=== PATIENT | female | born 1980 | race Caucasian/White ===

== ENCOUNTER → 2024-01-15 | Outpatient (CLI) | payer OTHER ==
[~2024-01-15] MED LIST: IBUP-1022 PO; METH0.2T53 PO; PRENTAB53 PO
[2024-01-15 18:34] LABS: BASO % 0.5 % (0.0-1.0); EOS # 0.1 10^3/uL (0.0-0.5); HEMATOCRIT 31.1 % (36.0-47.0); HEMOGLOBIN 9.5 g/dl (12.0-15.5); LYMPH # 1.4 10^3/uL (1.5-5.0); LYMPH % 22.3 % (24.0-44.0); MEAN CORPUSCULAR HEMOGLOBIN 26.5 pg (27.0-33.0); MEAN CORPUSCULAR HGB CONC 30.5 g/dl (32.0-36.5); MEAN CORPUSCULAR VOLUME 86.9 fl (80.0-96.0); MONO # 0.4 10^3/uL (0.0-0.8); MONO % 6.9 % (2.0-8.0); NEUTROPHILS # 4.3 10^3/uL (1.5-8.5); PLATELET COUNT, AUTOMATED 428 10^3/uL (150-450); RED BLOOD COUNT 3.58 10^6/uL (4.00-5.40); WHITE BLOOD COUNT 6.2 10^3/uL (4.0-10.0)
[2024-01-15 18:58] LABS: FREE T4 1.11 NG/DL (0.89-1.76)
[2024-01-15 18:59] LABS: THYROID STIMULATING HORMONE 2.376 uIU/ML (0.55-4.78)
== END ==
LOC: M PLALAB 14:39
PROVIDERS: ATTEND Nurse Practitioner Family
DX: N92.0 Excessive and frequent menstruation with regular cycle (principal)

== ENCOUNTER → 2024-01-27 | Outpatient (CLI) | payer OTHER | LOC: M WHC 06:45 | PROVIDERS: ATTEND Nurse Practitioner Family | DX: N92.0 Excessive and frequent menstruation with regular cycle (principal); D25.0 Submucous leiomyoma of uterus ==

== ENCOUNTER → 2024-01-27 | Outpatient (CLI) | payer OTHER ==
[2024-01-27 11:28] LABS: IRON (FE) 17 UG/DL (50-170); PERCENT SATURATION 4.3 % (13.2-45.0); TOTAL IRON BINDING CAPACITY 395 UG/DL (250-425)
[2024-01-27 11:32] LABS: FERRITIN < 0.9 NG/ML (7.3-270.7)
== END ==
LOC: M PLALAB 07:39
PROVIDERS: ATTEND Nurse Practitioner Family
DX: N92.0 Excessive and frequent menstruation with regular cycle (principal)

== ENCOUNTER → 2024-01-30 | Outpatient (CLI) | payer OTHER | LOC: MERGE 08:00 → M WHC 08:02 | PROVIDERS: ATTEND Nurse Practitioner Family | DX: N64.4 Mastodynia (principal); N63.20 Unspecified lump in the left breast, unspecified quadrant; R92.322 Mammographic fibroglandular density, left breast; N60.11 Diffuse cystic mastopathy of right breast; N60.12 Diffuse cystic mastopathy of left breast | CPT/HCPCS: 76641; 76642; 77066; G0279 ==

== ENCOUNTER 2024-02-17 14:03 | Outpatient (CLI) | payer OTHER ==
[~2024-02-17] VITALS: Ht 162.6 cm; Wt 71.0 kg
[~2024-02-17 14:03] MED LIST changes: +ALBUTEROL SULFATE 2.5MG/0.5ML INH NEB SOLN INH PRN; +EPINEPHrine INJ 1 MG/ML 1ML AMP IM PRN; +NS 1,000 ML IV SCH; +diphenhydrAMINE 50MG/ML VIAL IV PRN; +methylPREDNISolone 125MG 2ML VIAL IV PRN
[2024-02-17 14:45] VITALS: BP 158/88; O2SAT 100
[2024-02-17] MEDS: FERRIC CARBOXYMALTOSE INJ 750 MG in NS 250 ML (>50kg) IV ONE (14:48)
[2024-02-17 16:38] VITALS: BP 141/74; O2SAT 100
== END 2024-02-17 16:40 ==
LOC: M INFU 14:03
PROVIDERS: ATTEND Nurse Practitioner Family
DX: D64.9 Anemia, unspecified (principal)
CPT/HCPCS: 96365; J1439

== ENCOUNTER 2024-02-24 14:20 | Outpatient (CLI) | payer OTHER ==
[~2024-02-24 14:20] MED LIST changes: -ALBUTEROL SULFATE 2.5MG/0.5ML INH NEB SOLN INH PRN; -EPINEPHrine INJ 1 MG/ML 1ML AMP IM PRN; -NS 1,000 ML IV SCH; -diphenhydrAMINE 50MG/ML VIAL IV PRN; -methylPREDNISolone 125MG 2ML VIAL IV PRN
[2024-02-24 14:25] VITALS: BP 142/69; O2SAT 100
[2024-02-24] MEDS: FERRIC CARBOXYMALTOSE INJ 750 MG in NS 250 ML (>50kg) IV ONE (14:27)
[2024-02-24] MEDS ORDERED: ALBUTEROL SULFATE 2.5MG/0.5ML INH NEB SOLN INH PRN (14:30)
[2024-02-24] MEDS ORDERED: EPINEPHrine INJ 1 MG/ML 1ML AMP IM PRN (14:30)
[2024-02-24] MEDS ORDERED: NS 1,000 ML IV SCH (14:30)
[2024-02-24] MEDS ORDERED: diphenhydrAMINE 50MG/ML VIAL IV PRN (14:30)
[2024-02-24] MEDS ORDERED: methylPREDNISolone 125MG 2ML VIAL IV PRN (14:30)
[2024-02-24 15:50] VITALS: BP 137/67; O2SAT 100
== END 2024-02-24 15:52 ==
LOC: M INFU 14:20
PROVIDERS: ATTEND Nurse Practitioner Family
DX: D64.9 Anemia, unspecified (principal)
CPT/HCPCS: 96365; J1439

== ENCOUNTER → 2024-03-23 | Outpatient (CLI) | payer OTHER ==
[2024-03-23 17:38] LABS: BASO % 0.5 % (0.0-1.0); EOS # 0.1 10^3/uL (0.0-0.5); EOS % 1.8 % (0.0-3.0); HEMATOCRIT 39.2 % (36.0-47.0); HEMOGLOBIN 12.5 g/dl (12.0-15.5); LYMPH # 1.8 10^3/uL (1.5-5.0); LYMPH % 26.8 % (24.0-44.0); MEAN CORPUSCULAR HEMOGLOBIN 28.9 pg (27.0-33.0); MEAN CORPUSCULAR HGB CONC 31.9 g/dl (32.0-36.5); MEAN CORPUSCULAR VOLUME 90.5 fl (80.0-96.0); MONO # 0.6 10^3/uL (0.0-0.8); MONO % 9.2 % (2.0-8.0); NEUTROPHILS # 4.1 10^3/uL (1.5-8.5); NEUTROPHILS % 61.4 % (36.0-66.0); PLATELET COUNT, AUTOMATED 281 10^3/uL (150-450); RED BLOOD COUNT 4.33 10^6/uL (4.00-5.40); WHITE BLOOD COUNT 6.7 10^3/uL (4.0-10.0)
[2024-03-23 18:02] LABS: PERCENT SATURATION 32.2 % (13.2-45.0)
== END ==
LOC: M PLALAB 15:43
PROVIDERS: ATTEND Nurse Practitioner Family
DX: D50.9 Iron deficiency anemia, unspecified (principal)

== ENCOUNTER → 2024-05-06 | Outpatient (CLI) | payer OTHER ==
[2024-05-06 17:51] LABS: BASO % 0.4 % (0.0-1.0); EOS # 0.1 10^3/uL (0.0-0.5); EOS % 0.9 % (0.0-3.0); HEMATOCRIT 37.6 % (36.0-47.0); HEMOGLOBIN 12.4 g/dl (12.0-15.5); LYMPH # 2.3 10^3/uL (1.5-5.0); LYMPH % 23.3 % (24.0-44.0); MEAN CORPUSCULAR HEMOGLOBIN 30.2 pg (27.0-33.0); MEAN CORPUSCULAR VOLUME 91.7 fl (80.0-96.0); MONO # 0.6 10^3/uL (0.0-0.8); MONO % 6.6 % (2.0-8.0); NEUTROPHILS # 6.7 10^3/uL (1.5-8.5); NEUTROPHILS % 68.5 % (36.0-66.0); PLATELET COUNT, AUTOMATED 440 10^3/uL (150-450); WHITE BLOOD COUNT 9.8 10^3/uL (4.0-10.0)
== END ==
LOC: M PLALAB 16:21
PROVIDERS: ATTEND Nurse Practitioner Family
DX: D50.9 Iron deficiency anemia, unspecified (principal)

== ENCOUNTER → 2025-04-27 | Outpatient (CLI) | payer OTHER ==
[~2025-04-27] MED LIST changes: -IBUP-1022 PO; +IBUP600T42 PO
== END ==
LOC: M RAD 16:01
PROVIDERS: ATTEND Obstetrics & Gynecology
DX: N93.9 Abnormal uterine and vaginal bleeding, unspecified (principal); D25.0 Submucous leiomyoma of uterus

== ENCOUNTER 2025-05-31 06:09 | Day surgery (SDC) | payer OTHER ==
[~2025-05-31] VITALS: Ht 162.6 cm; Wt 76.9 kg
[~2025-05-31 06:09] MED LIST changes: +ACETAMINOPHEN *IV* 1,000 MG in APPROPRIATE DILUENT 0 ML IV ONE; +TRAN650T PO
[2025-05-31] MEDS: LR 1,000 ML IV SCH (06:35)
[2025-05-31] MEDS ORDERED: GABAPENTIN 300 MG CAP PO ONE (07:00)
[2025-05-31] MEDS: SCOPOLAMINE 1MG TRANSDERMAL PATCH TOP ONE (07:00)
[2025-05-31] MEDS ORDERED: HYDROmorphone HCL 2 MG/ML 1 ML VIAL As Ordered ONE (07:13)
[2025-05-31] MEDS ORDERED: MIDAZOLAM INJ 2 MG/2 ML VIAL As Ordered ONE (07:14)
[2025-05-31] MEDS ORDERED: dexAMETHasone 4 MG/ML 1 ML VIAL As Ordered ONE (07:15)
[2025-05-31] MEDS ORDERED: ROCURONIUM BROMIDE 50MG/5ML VIAL As Ordered ONE (07:16)
[2025-05-31] MEDS ORDERED: KETOROLAC 30 MG/ML 1 ML VIAL As Ordered ONE (07:16)
[2025-05-31] MEDS ORDERED: LIDOCAINE 2% 100 MG/5 ML SDV (FOR ANES.) As Ordered ONE (07:16)
[2025-05-31] MEDS ORDERED: SUGAMMADEX SODIUM 200 MG/2 ML VIAL As Ordered ONE (07:16)
[2025-05-31] MEDS ORDERED: ONDANSETRON 4MG/2ML VIAL As Ordered ONE (07:16)
[2025-05-31] MEDS ORDERED: ACETAMINOPHEN 1000MG/100ML IV BAG As Ordered ONE (07:19)
[2025-05-31 07:49] LABS: PLATELET COUNT, AUTOMATED 388 10^3/uL (150-450)
[2025-05-31] MEDS: ceFAZolin SOD 2 GM IV ONCE IV ONE (07:58)
[2025-05-31 08:06] LABS: ALT/SGPT 12 U/L (7.0-40); AST/SGOT 13 U/L (<34); CALCIUM LEVEL 8.1 MG/DL (8.5-10.1); CARBON DIOXIDE LEVEL 23 MMOL/L (20-31); CHLORIDE LEVEL 108 MMOL/L (98-107); CREATININE FOR GFR 0.66 MG/DL (0.55-1.30); GLOMERULAR FILTRATION RATE > 90.0 (>58); POTASSIUM SERUM 3.9 MMOL/L (3.5-5.1); SODIUM LEVEL 141 MMOL/L (136-145)
[2025-05-31] MEDS ORDERED: GLYCOPYRROLATE INJ 0.2 MG/ML 2 ML VIAL As Ordered ONE (08:31)
[2025-05-31] MEDS: FLUORESCEIN 10% (100 MG/ML) 5 ML VIAL As Ordered ONE (08:51)
[2025-05-31] MEDS: HYDROMORPHONE HCL 0.5 MG/0.5 ML SYRINGE IV PRN (09:58)
[2025-05-31] MEDS: ONDANSETRON 4MG/2ML VIAL IV PRN (11:00)
[2025-05-31 13:10] VITALS: BP 120/60; TEMP 96.9; O2SAT 99
== END 2025-05-31 13:21 | disposition home or self-care (01) ==
LOC: M SDC 06:09 → EDSTATUS 07:30 → M SDC 13:21
PROVIDERS: ATTEND Obstetrics & Gynecology
DX: D25.1 Intramural leiomyoma of uterus (principal); N93.9 Abnormal uterine and vaginal bleeding, unspecified; N88.8 Other specified noninflammatory disorders of cervix uteri; N83.8 Other noninflammatory disorders of ovary, fallopian tube and broad ligament
CPT/HCPCS: 36415; 58573; 80053; 81025; 85027; 86850; 86900; 86901; 88307; J0665; J0688; J1100; J1171; J1596; J1885; J2250; J2405; J3010; S2900